=== PATIENT | female | born 1955 | race Caucasian/White ===

== ENCOUNTER 2017-03-17 10:00 | Outpatient (RCR) | payer MEDICARE, MEDICAID ==
[~2017-03-17 10:00] MED LIST: AMOXICILLIN 8751 TAB PO; ANTIVERT 25MG25 MG PO; CARAFATE 1GM1 G PO; DESYREL 100MG100 MG PO; FLEXERIL5 MG PO; GLUCOPHAGE1000 MG PO; LAMICTAL200 MG PO; LEXAPRO20 MG PO; MEVACOR40 MG PO; NAPROSYN500 MG PO; NEURONTIN800 MG/TAB PO; PHENERGAN 25 TA25 MG PO; PRINIVIL40 MG PO; SEROQUEL400 MG PO; SINGULAIR 110 MG/TAB PO; ZANTAC 150MG T150 MG PO
[2017-04-24] MEDS ORDERED: CEPHALEXIN500 M1 PO (13:37)
[2017-04-24] MEDS ORDERED: NORCO 325 MG-51 TAB PO (13:39)
== END 2017-05-19 13:40 | disposition still patient (30) ==
LOC: WSOT 10:00
DX: M62.542 Muscle wasting and atrophy, not elsewhere classified, left hand (principal); Z98.890 Other specified postprocedural states
CPT/HCPCS: G8987-GO; G8988-GO

== ENCOUNTER 2017-04-24 12:18 | Emergency (ER) | payer MEDICARE, MEDICAID ==
[~2017-04-24] VITALS: Ht 162.6 cm; Wt 70.0 kg
[2017-04-24 12:19] VITALS: TEMP 98.3
[2017-04-24 13:12] LABS: BASO % 0.6 % (0.0-2.0); GRAN % 64.2 % (42.2-75.2); HEMATOCRIT 37.4 % (37.0-47.0); HEMOGLOBIN 12.4 g/dl (12.5-16.0); LYMPH # 1.3 (1.2-3.4); LYMPH % 28.3 % (20.0-51.0); MEAN CELL VOLUME 82 fl (80.0-100.0); MEAN CORPUSCULAR HEMOGLOBIN 27 pg (27.0-31.0); MEAN CORPUSCULAR HGB CONC 33 g/dl (33.0-37.0); MEAN PLATELET VOLUME 8.1 fl (7.4-10.4); MONO # 0.3 (0.1-0.6); MONO % 6.5 % (1.7-9.3); PLATELET COUNT 130 K/mm3 (130-400); RED BLOOD COUNT 4.57 M/mm3 (4.10-5.30); REDCELL DISTRIBUTION WIDTH-CV 12.3 % (11.5-14.5); WHITE BLOOD COUNT 4.7 K/mm3 (4.8-10.8)
[2017-04-24 13:20] VITALS: BP 124/82; PULSE 73
[2017-04-24 13:24] LABS: ADJUSTED CALCIUM 9.1 mg/dL (8.4-10.2); ALBUMIN 4.1 gm/dL (3.5-5.0); BILIRUBIN,TOTAL 0.6 mg/dL (0.0-1.0); CALCIUM 9.2 mg/dL (8.4-10.2); CREATININE, serum 0.77 mg/dL (0.52-1.25); POTASSIUM 4.2 mmol/L (3.4-5.0); TOTAL PROTEIN 6.7 gm/dL (6.4-8.2)
[2017-04-24] MEDS ORDERED: CEPHALEXIN500 M1 PO (13:37)
[2017-04-24] MEDS ORDERED: NORCO 325 MG-51 TAB PO (13:39)
== END 2017-04-24 13:56 | disposition home or self-care (01) ==
LOC: COL.ER 12:18
PROVIDERS: Physician Assistant Medical
DX: L03.031 Cellulitis of right toe (principal); F31.9 Bipolar disorder, unspecified; E11.9 Type 2 diabetes mellitus without complications; F17.210 Nicotine dependence, cigarettes, uncomplicated; Z95.5 Presence of coronary angioplasty implant and graft; Z90.49 Acquired absence of other specified parts of digestive tract; Z79.84 Long term (current) use of oral hypoglycemic drugs; Z23 Encounter for immunization; W22.8XXA Striking against or struck by other objects, initial encounter; Y92.009 Unspecified place in unspecified non-institutional (private) residence as the place of occurrence of the external cause

== ENCOUNTER → 2018-01-30 | Outpatient (CLI) | payer MEDICARE, MEDICAID ==
[~2018-01-30] MED LIST changes: +CEPHALEXIN500 M1 PO; +NORCO 325 MG-51 TAB PO
== END ==
LOC: MC.RAD 01-26 11:40
DX: Z12.31 Encounter for screening mammogram for malignant neoplasm of breast (principal)

== ENCOUNTER 2018-03-21 09:12 | Day surgery (SDC) | payer MEDICARE, MEDICAID ==
[~2018-03-21] VITALS: Ht 162.6 cm; Wt 61.2 kg
[2018-03-21 09:53] VITALS: BP 146/79; PULSE 76; TEMP 98
[2018-03-21] MEDS ORDERED: FLEXERIL 1010 MG/TAB PO (10:15)
[2018-03-21] MEDS ORDERED: LAMICTAL200 MG PO (10:20)
[2018-03-21] MEDS ORDERED: ALBUTEROL0.83 MG/ML IH (10:26)
[2018-03-21] MEDS ORDERED: SEROQUEL XR150 MG PO (10:27)
[2018-03-21] MEDS ORDERED: MYRBETR25MG PO (10:27)
[2018-03-21] MEDS ORDERED: LATUDA20 MG PO (10:28)
[2018-03-21] MEDS ORDERED: LYRICA 75MG CAP75 MG PO (10:28)
[2018-03-21] MEDS ORDERED: JANUVIA50 MG PO (10:28)
[2018-03-21] MEDS ORDERED: INCRUSE EL62.5 MCG/A IH (10:28)
[2018-03-21] MEDS ORDERED: PRILOSEC 20MG20 MG PO (11:43)
[2018-03-21 11:50] VITALS: BP 135/73; PULSE 76; TEMP 97.8
[2018-03-21 12:05] VITALS: BP 139/76; PULSE 71
[2018-03-21 12:20] VITALS: BP 130/66; PULSE 70
== END 2018-03-21 12:50 | disposition home or self-care (01) ==
LOC: SDCO 09:12
DX: K29.60 Other gastritis without bleeding (principal); K29.30 Chronic superficial gastritis without bleeding; J44.9 Chronic obstructive pulmonary disease, unspecified; E11.9 Type 2 diabetes mellitus without complications; Z79.84 Long term (current) use of oral hypoglycemic drugs; F32.9 Major depressive disorder, single episode, unspecified; I10 Essential (primary) hypertension; K58.9 Irritable bowel syndrome, unspecified; G47.30 Sleep apnea, unspecified; M19.90 Unspecified osteoarthritis, unspecified site
CPT/HCPCS: OP; J2250; J3010; J7030

== ENCOUNTER → 2019-04-10 | Emergency (ER) | payer MEDICARE, MEDICAID ==
[~2019-04-10] VITALS: Ht 162.6 cm; Wt 54.5 kg
[~2019-04-10] MED LIST changes: +ALBUTEROL0.83 MG/ML IH; +BACTROBAN15 GM TOP; +CALCIUM/MAGNESI1 T17 PO; +COLACE 100100 MG/CAP PO; +DOXYCYCLINE 10100 MG PO; +FLEXERIL 1010 MG/TAB PO; +INCRUSE EL62.5 MCG/A IH; +JANUVIA50 MG PO; +KLONOPIN 0.5MG0.5 MG PO; +LATUDA20 MG PO; +LYRICA 75MG CAP75 MG PO; +MYRBETR25MG PO; +PRILOSEC 20MG20 MG PO; +SEROQUEL XR150 MG PO
[2019-04-10 10:35] VITALS: BP 188/79; TEMP 97.8
[2019-04-10 11:01] LABS: BASO % 0.4 % (0.0-2.0); GRAN # 3.4 (1.4-6.5); GRAN % 69.1 % (42.2-75.2); HEMOGLOBIN 11.6 g/dl (12.5-16.0); LYMPH # 1.1 (1.2-3.4); LYMPH % 21.8 % (20.0-51.0); MEAN CELL VOLUME 87 fl (80.0-100.0); MEAN CORPUSCULAR HEMOGLOBIN 29 pg (27.0-31.0); MEAN CORPUSCULAR HGB CONC 33 g/dl (33.0-37.0); MONO # 0.4 (0.1-0.6); MONO % 8.3 % (1.7-9.3); PLATELET COUNT 159 K/mm3 (130-400); RED BLOOD COUNT 4.05 M/mm3 (4.10-5.30); REDCELL DISTRIBUTION WIDTH-CV 12.5 % (11.5-14.5)
[2019-04-10 11:15] LABS: HEMATOCRIT 35.4 % (37.0-47.0)
[2019-04-10 11:21] LABS: ALBUMIN 3.5 gm/dL (3.5-5.0); BILIRUBIN,TOTAL 0.5 mg/dL (0.0-1.0); C-REACTIVE PROTEIN 3.4 mg/dL (0.0-0.9); CALCIUM 9.2 mg/dL (8.4-10.2); CREATININE, serum 0.62 (0.52-1.25); POTASSIUM 3.9 mmol/L (3.4-5.0); TOTAL PROTEIN 6.4 gm/dL (6.4-8.2)
[2019-04-10 12:09] VITALS: PULSE 80
== END ==
LOC: COL.ER 10:32
PROVIDERS: Physician Assistant
DX: E11.621 Type 2 diabetes mellitus with foot ulcer (principal); L97.529 Non-pressure chronic ulcer of other part of left foot with unspecified severity; I10 Essential (primary) hypertension; K21.9 Gastro-esophageal reflux disease without esophagitis; G47.30 Sleep apnea, unspecified; J44.9 Chronic obstructive pulmonary disease, unspecified; F32.9 Major depressive disorder, single episode, unspecified; K58.9 Irritable bowel syndrome, unspecified; F17.210 Nicotine dependence, cigarettes, uncomplicated; Z90.710 Acquired absence of both cervix and uterus; Z90.89 Acquired absence of other organs; Z88.5 Allergy status to narcotic agent; Z88.1 Allergy status to other antibiotic agents; Z79.84 Long term (current) use of oral hypoglycemic drugs
CPT/HCPCS: J0696

== ENCOUNTER 2022-11-07 19:02 | Observation (INO) | payer MEDICARE, MEDICAID ==
[~2022-11-07] VITALS: Ht 162.6 cm; Wt 73.8 kg
[~2022-11-07 19:02] MED LIST changes: +LAMICTAL 100MG100 MG PO; +NEURONTIN400 MG/CAP PO; -NEURONTIN800 MG/TAB PO
[2022-11-07 19:34] LABS: BASO % 0.4 % (0.0-2.0); GRAN # 3.8 K/mm3 (1.4-6.5); GRAN % 71.6 % (42.2-75.2); HEMATOCRIT 35.5 % (37.0-47.0); HEMOGLOBIN 11.8 g/dl (12.5-16.0); LYMPH # 1.1 K/mm3 (1.2-3.4); LYMPH % 19.7 % (20.0-51.0); MEAN CELL VOLUME 89 fl (80.0-100.0); MEAN CORPUSCULAR HEMOGLOBIN 30 pg (27-31); MEAN CORPUSCULAR HGB CONC 33 g/dl (33.0-37.0); MEAN PLATELET VOLUME 8.3 fl (7.4-10.4); MONO # 0.4 K/mm3 (0.1-0.6); MONO % 7.9 % (1.7-9.3); PLATELET COUNT 116 K/mm3 (130-400); REDCELL DISTRIBUTION WIDTH-CV 12.5 % (11.5-14.5)
[2022-11-07 19:51] LABS: ALANINE AMINOTRANSFERASE 9 U/L (0-55); ALBUMIN 3.9 gm/dL (3.4-4.8); ALKALINE PHOSPHATASE 101 U/L (40-150); ANION GAP 14 mmol/L (7-16); AST,SGOT 12 U/L (5-34); BILIRUBIN,TOTAL 0.5 mg/dL (0.2-1.2); BLOOD UREA NITROGEN 26 mg/dL (10-20); CALCIUM 9.1 mg/dL (8.4-10.2); CARBON DIOXIDE 21 mmol/L (23-31); CHLORIDE 104 mmol/L (98-107); CREATININE, serum 2.12 mg/dL (0.57-1.11); GLUCOSE 228 mg/dL (70-99); POTASSIUM 5.1 mmol/L (3.5-4.5); SODIUM 139 mmol/L (136-145); TOTAL PROTEIN 6.3 gm/dL (6.2-8.1)
[2022-11-07 19:56] LABS: TROPONIN-I < 0.010 ng/mL (0.00-0.033)
[2022-11-07 20:05] LABS: COLLECTION METHOD CLEAN CATCH
[2022-11-07 20:15] LABS: MUCOUS Present (NOT PRESENT); SQUAMOUS EPITHELIAL None Seen /hpf (0-10); URINE BACTERIA Rare /hpf (NONE SEEN); URINE RBC 0-2 /hpf (0-2)
[2022-11-07 20:16] LABS: URINE APPEARANCE Hazy (CLEAR/HAZY); URINE BLOOD Negative (NEGATIVE); URINE COLOR Yellow (YELLOW); URINE GLUCOSE Negative (NEGATIVE); URINE KETONE Negative (NEGATIVE); URINE NITRATE Negative (NEGATIVE); URINE PROTEIN(semi-quant) 1+ (NEGATIVE); URINE UROBILINOGEN 0.2 (NEGATIVE)
[2022-11-08] VITALS (7 sets, daily range): BP systolic 101–148; BP diastolic 46–64; PULSE 78–92; TEMP 98.9–100.2
--- NOTE | 2022-11-08 06:37 | NUR ---
pt admitted to room 310 from ED per cart accompanied by ED RN and daughter, able to get basic info from daughter, however, she does not know any info on pt's meds or health. she is going to contact pt's pharmacy today to see if they can send list to us. pt able to respond to questions, alert and oriented x3, very drowsy, attempted to urinate on BSC with assist of 2, very unsteady on feet, started full body shaking, unable to go, catheter ordered and placed with immediate return of yellow urine, arrived to floor on 2L O2 per NC but required increase to 4L, IVF infusing per piv @ 125 cc/hr.
[2022-11-08 06:43] LABS: BASO % 0.5 % (0.0-2.0); GRAN % 72.8 % (42.2-75.2); HEMOGLOBIN 10.6 g/dl (12.5-16.0); LYMPH # 0.8 K/mm3 (1.2-3.4); LYMPH % 18.5 % (20.0-51.0); MEAN CELL VOLUME 91 fl (80.0-100.0); MEAN CORPUSCULAR HEMOGLOBIN 29 pg (27-31); MEAN CORPUSCULAR HGB CONC 32 g/dl (33.0-37.0); MEAN PLATELET VOLUME 8.3 fl (7.4-10.4); MONO # 0.3 K/mm3 (0.1-0.6); MONO % 7.5 % (1.7-9.3); PLATELET COUNT 109 K/mm3 (130-400); REDCELL DISTRIBUTION WIDTH-CV 12.7 % (11.5-14.5)
[2022-11-08 06:47] LABS: HEMATOCRIT 32.8 % (37.0-47.0)
[2022-11-08 07:04] LABS: CALCIUM 8.2 mg/dL (8.4-10.2); CREATININE, serum 1.55 mg/dL (0.57-1.11); MAGNESIUM 1.8 mg/dL (1.6-2.6); POTASSIUM 4.8 mmol/L (3.5-4.5)
--- NOTE | 2022-11-08 07:56 | NUR ---
Assessment complete. A/O x3- states it is year 2021 but oriented to name, , month and location. Answers questions appropriately. O2 4L/NC. Reports SOA. NS infusing at 125ml/hr to RW without s/s complications. Fall Risk- bed alarm on and patient encouraged to call for assistance. Verbalizes understanding.
--- NOTE | 2022-11-08 08:53 | NUR ---
Pt to MRI via w/c with MRI staff.
--- NOTE | 2022-11-08 09:13 | NUR ---
Initial visit; Patient thanked District [address] Administrator for looking in on her and offering prayer and God's blessings. District Court Administrator will continue to check on Jannie and will keep her in her prayers.
--- NOTE | 2022-11-08 10:36 | NUR ---
Pt returns to room from MRI.
[2022-11-08] MEDS ORDERED: CELEXA 20MG20 MG/TAB PO (13:21)
[2022-11-08] MEDS ORDERED: PEPCID 20MG TAB20 MG PO (13:21)
--- NOTE | 2022-11-08 14:55 | NUR ---
Numerical Control Machine Operator met with patient to discuss discharge planning. Patient lives alone in [place] and has in home services from [facility]. Patient's [facility] worker, Kallie is at bedside and advised that she goes to the patient's home Tuesday-, for four hours. Patient sees Dr. Solomon for primary care and obtains medications from [facility]. Patient does not use oxygen at home. Patient has a walker at home. Patient does not have PT/OT through Home Health at this time, but is open to this. Patient has DPOA-HC designating Trini and Noe Baconers who live in [place]. Patient is interested in changing her DPOA-HC to her daughter, Yvonne (ph#[phone]). SW will follow up tomorrow as patient has not been completely oriented today. Patient would like to return home at time of discharge. SULEMAN contacted patient's daughter, Yvonne to review discharge plan. Yvonne advised she thought patient's [facility] worker was going to help her set up DPOA-HC, but it does not appear this has been completed. Yvonne advised Hospitalist thought patient may not be able to return home. SULEMAN advised PT is recommending home, however SW is here to assist with any discharge recommendations. Discharge Plan: Home, pending further recommendations
--- NOTE | 2022-11-08 18:23 | NUR ---
Pt resting in bed. Patient was more oriented later this am and early this afternoon. She has become more disoriented this evening. Reorients easily. NS decreased earlier in shift, per order, to 75ml/hr. Has had poor intake with meals stating that she doesn't like the food. Denied pain or needs.
[2022-11-08 19:48] LABS: TRICYCLIC ANTIDEPRESS URINE NEGATIVE
[2022-11-08] MEDS ORDERED: MEVACOR40 MG PO (20:51)
[2022-11-08] MEDS ORDERED: ZESTRIL40 MG PO (20:52)
--- NOTE | 2022-11-08 22:30 | NUR ---
Patient assessed around 2034. Alert and oriented, able to answer all questions appropriately and follow directions. Complained of headache, given PRN Acetaminophen. On oxygen at 3 L/min via NC. LS CTA in upper lobes, diminished in lower. Indwelling harmon catheter draining clear yellow urine to dependent drainage. Went over medications off recently filled medications from pharmacy. Updated ART Balderas. Awaiting further orders. Voices no questions, needs, or concerns at this time. In bed with call light within reach. High fall risk precautions in place. Patient has tremors, reports this is not new for her.
[2022-11-09 03:25] VITALS: BP 149/59; PULSE 86; TEMP 98.7
--- NOTE | 2022-11-09 05:38 | NUR ---
Patient has been assisted to bathroom for safety during the night due to tremors. Gait steady on and off throughout the night. Voices no questions, needs, or concerns at this time. On oxygen at 3 L/min via NC. In bed with call light within reach. Bed alarm on.
[2022-11-09 06:43] LABS: BASO % 0.2 % (0.0-2.0); GRAN # 3.3 K/mm3 (1.4-6.5); GRAN % 73.4 % (42.2-75.2); HEMOGLOBIN 10.2 g/dl (12.5-16.0); LYMPH # 0.7 K/mm3 (1.2-3.4); LYMPH % 16.1 % (20.0-51.0); MEAN CELL VOLUME 91 fl (80.0-100.0); MEAN CORPUSCULAR HEMOGLOBIN 30 pg (27-31); MEAN CORPUSCULAR HGB CONC 33 g/dl (33.0-37.0); MEAN PLATELET VOLUME 8.3 fl (7.4-10.4); MONO # 0.4 K/mm3 (0.1-0.6); MONO % 9.6 % (1.7-9.3); PLATELET COUNT 112 K/mm3 (130-400); RED BLOOD COUNT 3.44 M/mm3 (4.10-5.30); REDCELL DISTRIBUTION WIDTH-CV 12.3 % (11.5-14.5)
[2022-11-09 06:45] LABS: HEMATOCRIT 31.3 % (37.0-47.0)
[2022-11-09 07:05] LABS: CALCIUM 8.4 mg/dL (8.4-10.2); CREATININE, serum 1.03 mg/dL (0.57-1.11); POTASSIUM 4.4 mmol/L (3.5-4.5)
[2022-11-09 07:09] VITALS: BP 136/73; PULSE 85; TEMP 98.8
--- NOTE | 2022-11-09 09:55 | NUR ---
PT UP TO BATHROOM 4 TIMES SINCE 8AM, SHE IS HAVING SMALL SOFT BM AND LAST BATHROOM SHE VOIDED WITHOUT PROBLEMS AFTER ACEVEDO REMOVED. PT ANXIETY IS ELEVATED, PATIENT FIDDLES WITH CALL LIGHT, PHONE AND ANY TUBING WITHIN REACH. KLONOPIN GIVEN PATIENT EDUCATED ABOUT MEDICATION.
[2022-11-09 11:22] VITALS: BP 155/62; PULSE 101; TEMP 99
[2022-11-09 15:44] VITALS: BP 145/53; PULSE 102; TEMP 99.2
--- NOTE | 2022-11-09 15:50 | NUR ---
Gerentological Physiotherapist attended clinical rounds with the team. Therapy and Hospitalist are recommending SNF placement. SW met with patient and discussed benefits of SNF. Patient is adamant that she is not going to a facility. SW reviewed risk of rehospitalization and risk of falling, however patient stated that she is going home and has to try. Patient is open to Home Health. SW gave Medicare.gov list of agencies and patient's preferences are [facility]) [facility] and 2) [facility]. SW also discussed DPOA-HC with patient who stated she wanted to complete a new form designating her daughter, Yvonne. Patient answered all orientation questions including month, year, current president, and location. Patient verbalized understanding of DPOA-HC. Patient chose to designate her daughter, Yvonne as primary agent and son in law, Zeus as alternate. SW provided original and copies to patient, then placed a copy in patient's chart. SW contacted patient's daughter, Yvonne and reviewed the above information. Yvonne stated that patient had also refused placement with her as well. Yvonne plans to meet with patient this afternoon to discuss patient staying with her and her when she discharges from the hospital. SULEMAN updated Hospitalist. Discharge Plan: Home with Home Health, possibly home with family
--- NOTE | 2022-11-09 17:54 | NUR ---
PT SITTING ON EDGE OF BED, PULLED TELEMETRY LEADS OFF EARLIER STATING, "THESE THINGS WERE IN THE WAY." EDUCATED PATIENT ON NEED TO LEAVE LEADS ON, SHE VERBALIZED UNDERSTANDING. CHUNONORE[place]CCA PRN GIVEN FOR PATIENT FEELING ANXIOUS. RESP ARE EVEN AND EASY BUT PATIENT FIDGETS IN BED AND FEET ARE CONSTANTLY MOVING IN THE BED.
[2022-11-09 19:14] VITALS: BP 139/58; PULSE 88; TEMP 100.1
[2022-11-09 22:58] VITALS: BP 159/75; PULSE 80; TEMP 99.1
--- NOTE | 2022-11-09 23:00 | NUR ---
PATIENT RESTING IN BED WHEN ENTERING ROOM. SHE ASKS IF IT'S MORNING TIME BUT IS ORIENTED OTHERWISE AND IS EASILY REDIRECTED. NO NEEDS AT THIS TIME. MEDICATIONS GIVEN. SLIGHTLY EDEMATOUS BLE, ELEVATED THE LOWER PART OF THE BED. ALL QUESTIONS ANSWERED.
[2022-11-10 03:57] VITALS: BP 152/66; PULSE 71; TEMP 98.5
--- NOTE | 2022-11-10 04:01 | NUR ---
PATIENT ASSISTED TO RESTROOM--SHE HAD A SMALL BM. SHE KNOWS THAT ITS THE MORNING AND THAT SHE NEEDS TO GET BACK TO BED FOR MORE REST. NO PAIN NOTED. NO FURTHER NEEDS AT THIS TIME.
--- NOTE | 2022-11-10 06:04 | NUR ---
PATIENT RESTING IN BED ASLEEP. SHE HAS BEEN UP TO THE RESTROOM MULTIPLE TIMES THIS SHIFT. NO CHANGES NOTED THIS MORNING.
[2022-11-10 06:58] LABS: BASO % 0.4 % (0.0-2.0); GRAN % 68.1 % (42.2-75.2); HEMOGLOBIN 10.7 g/dl (12.5-16.0); LYMPH % 22.1 % (20.0-51.0); MEAN CELL VOLUME 89 fl (80.0-100.0); MEAN CORPUSCULAR HEMOGLOBIN 29 pg (27-31); MEAN CORPUSCULAR HGB CONC 33 g/dl (33.0-37.0); MEAN PLATELET VOLUME 8.3 fl (7.4-10.4); MONO # 0.4 K/mm3 (0.1-0.6); MONO % 8.7 % (1.7-9.3); PLATELET COUNT 106 K/mm3 (130-400); RED BLOOD COUNT 3.67 M/mm3 (4.10-5.30); REDCELL DISTRIBUTION WIDTH-CV 12.2 % (11.5-14.5)
[2022-11-10 07:04] LABS: HEMATOCRIT 32.5 % (37.0-47.0)
[2022-11-10 07:22] LABS: CALCIUM 8.7 mg/dL (8.4-10.2); CREATININE, serum 0.99 mg/dL (0.57-1.11)
[2022-11-10 07:34] VITALS: BP 164/69; PULSE 90; TEMP 98.1
[2022-11-10] MEDS ORDERED: NEURONTIN300 MG/CAP PO (09:29)
--- NOTE | 2022-11-10 10:45 | NUR ---
PT WILL BE DISCHARGED TO [facility] PATIENT IS NOT SAFE TO BE HOME ALONE. HER ANXIETY HAS HER GOING TO THE BATHROOM FREQUENTLY.
[2022-11-10 11:18] VITALS: BP 140/63; PULSE 77; TEMP 98.7
--- NOTE | 2022-11-10 15:23 | NUR ---
Extruder Tender met with patient to review discharge plan. Patient still unwilling to go to a facility at this time. SW did explain to patient that a short rehab stay should not affect her income or apartment. Patient still prefers to go home with her daughter, Yvonne. SULEMAN had a message from Leeanne at [facility] advising they can accept patient. SULEMAN faxed discharge orders and called to confirm they were received. SULEMAN provided daughter's phone number and address to [facility]. SULEMAN contacted Yvonne to review discharge planning. Yvonne is agreeable to have patient stay with them at time of discharge. Yvonne is working on moving furniture around in their spare room as well as clearing their schedules this afternoon. Yvonne advised patient may need a new walker as the one patient has is in her apartment and they are having trouble accessing it at this time. Yvonne advised she spoke with patient's [place] worker and her services through them can continue even when patient is living with daughter. SULEMAN contacted [facility] and faxed referral and order for walker. [facility] is able to fill order as patient has not had a walker purchased through insurance in the last five years. [facility] to deliver up to the room. Discharge Plan: Home with daughter and Home Health
[2022-11-10 15:41] VITALS: BP 141/65; PULSE 86; TEMP 99.1
--- NOTE | 2022-11-10 16:39 | NUR ---
DISCHARGE INSTRUCTIONS REVIEWED WITH PATIENT AND DAUGHTER. ALL QUESTIONS ANSWERED AND DISCUSSION ABOUT DIABETIC DIET WAS COMPLETED.
== END 2022-11-10 16:41 | disposition home or self-care (01) ==
LOC: COL.ER 19:02 → MEDICAL 21:47
PROVIDERS: Emergency Medicine; Physician Assistant; Student in an Organized Health Care Education/Training Program; ADMIT Student in an Organized Health Care Education/Training Program
DX: G93.40 Encephalopathy, unspecified (principal); I10 Essential (primary) hypertension; N17.9 Acute kidney failure, unspecified; J96.01 Acute respiratory failure with hypoxia; E11.9 Type 2 diabetes mellitus without complications; Z66 Do not resuscitate; J44.9 Chronic obstructive pulmonary disease, unspecified; E87.5 Hyperkalemia; K76.89 Other specified diseases of liver; F17.210 Nicotine dependence, cigarettes, uncomplicated; Z79.84 Long term (current) use of oral hypoglycemic drugs; Z20.822 Contact with and (suspected) exposure to COVID-19; Z79.899 Other long term (current) drug therapy
CPT/HCPCS: A4314; A9575; G0378; J0456; J0696; J1644; J1815; J2920; J7030; J7050; J7512; Q9967

== ENCOUNTER 2024-02-18 14:14 | Emergency (ER) | payer MEDICARE, MEDICAID ==
[~2024-02-18] VITALS: Ht 160 cm; Wt 64.5 kg
[~2024-02-18 14:14] MED LIST changes: +CELEXA 20MG20 MG/TAB PO; +NEURONTIN300 MG/CAP PO; +PEPCID 20MG TAB20 MG PO; +ZESTRIL40 MG PO
[2024-02-18 14:21] VITALS: TEMP 97.9
[2024-02-18 16:02] VITALS: BP 110/70; PULSE 76
== END 2024-02-18 16:11 | disposition home or self-care (01) ==
LOC: COL.ER 14:14
DX: S92.511A Displaced fracture of proximal phalanx of right lesser toe(s), initial encounter for closed fracture (principal); W22.03XA Walked into furniture, initial encounter

== ENCOUNTER → 2024-06-21 | Outpatient (CLI) | payer MEDICARE | LOC: MC.RAD 09:11 | DX: Z12.31 Encounter for screening mammogram for malignant neoplasm of breast (principal) ==

== ENCOUNTER → 2024-08-13 | Outpatient (CLI) | payer OTHER | LOC: COL.RAD 09:13 | DX: M51.369 Other intervertebral disc degeneration, lumbar region without mention of lumbar back pain or lower extremity pain (principal); M24.28 Disorder of ligament, vertebrae; M48.061 Spinal stenosis, lumbar region without neurogenic claudication; M43.16 Spondylolisthesis, lumbar region ==